=== PATIENT | male | born 1950 | race Hispanic/Latino ===

== ENCOUNTER 2018-08-31 07:16 | Outpatient (CLI) | payer MEDICARE, OTHER ==
--- NOTE | 2018-08-31 08:45 | ULT ---
ULTRASOUND ABDOMEN COMPLETE: INDICATIONS: Flank pain with history of renal calculi. TECHNIQUE: Grayscale ultrasound evaluation of the liver, gallbladder, spleen, pancreas, common bile duct, kidney s, abdominal aorta, and inferior vena cava (IVC). FINDINGS: No focal hepatic lesion or evidence of acute gallbladder pathology. Benavides sign is reported as negat santo. The common duct is normal, measuring 3 mm in diameter. From the imaged pancreas, there is a schwab bcentimeter focus of decreased echogenicity within the pancreatic body, cystic in appearance, althoug h too small to definitively characterize on this exam. Foci of increased echogenicity are seen withi n the kidneys, in keeping with the history of nephrolithiasis. There is no obstructive uropathy evid ent on the provided views. Fairly symmetric lengths of each kidney, approximately 10 to 11 cm in bao gth bilaterally. There is atherosclerotic disease of the imaged aorta. No ascites. IMPRESSION: 1. Small cystic appearing lesion of the pancreas. Recommend pancreatic mass protocol CT examination for further evaluation. 2. Hyperechoic foci of the kidneys without obstructive uropathy, indicative of nephrolithiasis. CODE T POS: TPC
== END 2018-08-31 07:17 | disposition home or self-care (01) ==
LOC: SCSULT 07:16
PROVIDERS: ATTEND Internal Medicine
DX: N20.0 Calculus of kidney (principal); M54.5 Low back pain; K86.9 Disease of pancreas, unspecified; N28.89 Other specified disorders of kidney and ureter
CPT/HCPCS: 76700

== ENCOUNTER 2020-03-07 09:15 | Outpatient (CLI) | payer MEDICARE, OTHER ==
--- NOTE | 2020-03-07 09:56 | ULT ---
Exam: Bilateral renal ultrasound HISTORY: Left renal calculi and left renal cyst COMPARISON: None FINDINGS: Right kidney: Normal cortical echotexture. No hydronephrosis. Right kidney measurements: 9.7 x 4.7 x 4.6 cm. Left kidney: Normal cortical echotexture. No hydronephrosis Left kidney measurements 10.1 x 6.2 x 4.7 cm.. 1.2 x 1.4 x 1.3 cm cyst in the mid left renal cortex. Urinary bladder: Normal mucosa. IMPRESSION: 1. No hydronephrosis 2. Left renal cyst. 3. No sonographic evidence of a left or right renal calculus.
--- NOTE | 2020-03-07 10:42 | RAD ---
KUB: 03/07/2020 COMPARISON: CT abdomen 09/16/2018 HISTORY: Renal stone disease FINDINGS: There is a calcification in the left upper quadrant inferior to the left 12th rib measuring approximately 5 mm most consistent with a stable stone within the lower pole/mid pole of the left kidney. No calcification is seen within the right upper quadrant. The bowel gas pattern appears nonob structed. Linear metallic densities in the pelvis suggest radiotherapy treatment of the prostate gland. IMPRESSION: 5 mm left upper quadrant calcification consistent with left renal stone. No acute finding s.
== END 2020-03-07 09:16 | disposition home or self-care (01) ==
LOC: BICULT 09:15
PROVIDERS: ATTEND Urology
DX: N28.1 Cyst of kidney, acquired (principal); N20.0 Calculus of kidney; N28.89 Other specified disorders of kidney and ureter
CPT/HCPCS: 36415; 74018; 76770; 80048; 81001; 87086; G0103

== ENCOUNTER 2023-05-03 12:41 | Outpatient (CLI) | payer MEDICARE | END 2023-05-03 12:42 | disposition home or self-care (01) | LOC: ULT 12:41 | PROVIDERS: ATTEND Urology | DX: N28.1 Cyst of kidney, acquired (principal); Z12.5 Encounter for screening for malignant neoplasm of prostate; Z87.442 Personal history of urinary calculi | CPT/HCPCS: 76770 ==